=== PATIENT | female | born 1955 | race Caucasian/White ===

== ENCOUNTER 2016-06-02 13:34 | Day surgery (SDC) | payer OTHER ==
--- NOTE | 2016-05-30 12:44 | HP ---
ADMITTING HISTORY AND PHYSICAL: DATE OF ADMISSION: 06/02/16 - [facility] AGE: 61 years, female. ADMITTING DIAGNOSES: 1. Right hydronephrosis. 2. Obstructing calculus, right proximal ureter. 3. Urinary tract infection. PLANNED PROCEDURE: Right retrograde and right stent insertion (to be followed in near future by shockwave or laser lithotripsy). SURGEON: Garcia Conklin MD. ADMITTING HISTORY AND PHYSICAL: Marisol Rapp is a 61-year-old lady, who was recently seen after a gap of several years. She has been having recurrent or persistent urinary tract infections for the last 2 to 3 months and also more recently some right flank pain. She has been on 4 or 5 different antibiotics over the course of the last 2 to 3 months and is currently on Augmentin. She had a CT scan done in November 2015, which had revealed a 1 cm nonobstructing calculus at the right ureteropelvic junction. Because of the persistence of infection and right flank pain, my suspicion was that the calculus may have moved and an ultrasound was done, which revealed a 1.2 cm calculus in the proximal right ureter causing moderate to severe right hydronephrosis. She is now being brought in for urgent right stent insertion to be followed in the future by lithotripsy after complete clear-up of infection. PAST MEDICAL HISTORY: Significant for; 1. Recurrent renal calculi. 2. Hypertension. 3. Right breast cancer diagnosed in 2006. PAST SURGICAL HISTORY: Significant for right lumpectomy followed by radiation therapy, total abdominal hysterectomy and bilateral salpingo-oophorectomy, surgery for skin cancers, and ureteroscopy in 2007. MEDICATIONS ON ADMISSION: 1. Atenolol 50 mg b.i.d. 2. Lisinopril 10 mg a day. 3. Effexor 37.5 mg daily. 4. Ambien 12.5 mg daily. 5. Augmentin b.i.d. 6. Colazal p.r.n. ALLERGIES AND INTOLERANCES: DEMEROL, CODEINE, INTRAVENOUSLY ADMINISTERED IODINE , and FLU VACCINE. FAMILY HISTORY: She has a strong family history of kidney stones, both her sisters have had kidney stones. SMOKING HISTORY: She is a nonsmoker. PHYSICAL EXAMINATION Reveals a pleasant, mildly uncomfortable-appearing middle aged lady. Blood pressure is 130/80, pulse 75 per minute, oxygen saturation 98% on room air, temperature 96.7. Cardiovascular Exam: Regular rate and rhythm. S1, S2. Lungs are clear bilaterally. Abdomen is soft with mild right flank tenderness. IMPRESSION: A 61-year-old lady with recurrent or persistent urinary tract infections for the last 6 to 8 weeks and a large obstructing calculus in the right proximal ureter. Plan is for right stent insertion to be followed in the future by lithotripsy. CC: Dr. Dong; Dr. Amada Kauffman * [id number]/[facility] #: [id number] MTDD
[~2016-06-02 13:34] MED LIST: Buffered Lidocaine 1% SYR 3ML* 3 ML/SYR SYRINGE INTRADERM ONE; Famotidine IV* 10 MG/ML 2 ML (20 mg) IV ONE
[2016-06-02] MEDS ORDERED: Famotidine IV* 10 MG/ML 2 ML (20 mg) ONE (14:12)
[2016-06-02] MEDS ORDERED: cefTRIAXone(*) 2 GM ADDV.VIAL IVPB ONE (14:12)
[2016-06-02 15:26] LABS: Hematocrit 42 % (35-47); Hemoglobin 13.9 g/dl (12.0-16.0); Mean Corpuscular HGB Conc 33 g/dl (31-36); Mean Corpuscular Hemoglobin 31 pg (27-31); Mean Corpuscular Volume 91 fL (80-97); Mean Platelet Volume 7 um3 (7.4-10.4); Red Blood Count 4.54 10^6/ul (4.0-5.4); Red Cell Distribution Width 15 % (10.5-15); White Blood Count 7.7 10^3/ul (3.5-10.8)
[2016-06-02 15:41] LABS: BUN/Creatinine Ratio 14.5 (8-20); EGFR African American 99.8 (>60); EGFR Non-African American 77.6 (>60); Potassium 3.8 mmol/L (3.5-5.0)
[2016-06-02] MEDS ORDERED: Gentamicin ADULT (*) 160 MG in NS 0.9% 100 ML* 100 ML IVPB ONE (16:00)
[2016-06-02] MEDS ORDERED: Dexamethasone IV* 4 MG/ML 1 ML (4 MG) ONE (16:35)
[2016-06-02] MEDS ORDERED: Lidocaine 2% PF * 5 ML VIAL ONE (16:35)
[2016-06-02] MEDS ORDERED: fentaNYL* 50 MCG/ML 2 ML VIAL (100 MCG VIAL) ONE (16:35)
[2016-06-02] MEDS ORDERED: Ondansetron INJ* 2 MG/ML VIAL ONE (16:35)
[2016-06-02] MEDS ORDERED: Propofol* 10 MG/ML 20 ML BTL IV PUSH ONE (16:35)
[2016-06-02] MEDS ORDERED: Ketorolac INJ* 30 MG/ML 1 ML VIAL ONE (16:35)
[2016-06-02] MEDS ORDERED: Midazolam* 1 MG/ML 5 ML VIAL (5 MG) ONE (16:36)
[2016-06-02] MEDS ORDERED: Iohexol 180 (CONTRAST) 10 ML SDV IV ONE (16:50)
[2016-06-02] MEDS ORDERED: fentaNYL* 50 MCG/ML 2 ML VIAL (100 MCG VIAL) IV PRN (17:19)
[2016-06-02] MEDS ORDERED: HYDROmorphone INJ* 1 MG/ML CARPUJECT SYRINGE IV PRN (17:19)
[2016-06-02] MEDS ORDERED: Ondansetron INJ* 2 MG/ML VIAL IV PRN (17:19)
--- NOTE | 2016-06-02 17:57 | RAD ---
INDICATION: Right ureteral stent placement. COMPARISON: Comparison is made with a prior CT of the abdomen and pelvis from December 14, 2015 and correlation is made with a prior KUB series from May 30, 2016. TECHNIQUE: 9 seconds of intermittent fluoroscopic guidance were provided and 5 spot films of the abdomen were centered on the right side. FINDINGS: There is partial opacification of the right renal collecting system. There is dilatation of the renal pelvis and calyces consistent with hydronephrosis. Subsequently there is placement of a double-J stent catheter on the right side which demonstrates normal course. IMPRESSION: INTRAOPERATIVE CONTROL FILMS. CPT II Codes: 6045F
[2016-06-02 18:39] VITALS: BP 178/93
--- NOTE | 2016-06-03 09:46 | OP ---
DATE OF OPERATION: 06/02/16 - [facility] DATE OF : 57 - AGE/SEX: 61 years, female. SURGEON: Garcia Conklin MD ANESTHESIOLOGIST: Dr. Francois. ANESTHESIA: Intravenous sedation. PRE-OP DIAGNOSES: 1. Right hydronephrosis. 2. Obstructing calculus, right proximal ureter. 3. Recurrent or persistent urinary tract infections. POST-OP DIAGNOSES: 1. Right hydronephrosis. 2. Obstructing calculus, right proximal ureter. 3. Recurrent or persistent urinary tract infections. OPERATIVE PROCEDURES: Cystoscopy, right retrograde pyelogram, right ureteral calculus manipulation and right stent insertion. COMPLICATIONS: None. STENT USED: 8-British stent, right ureter. POSTOPERATIVE CONDITION: Stable. INDICATIONS: Marisol Rapp is a 61-year-old lady with a history of recurrent or persistent urinary tract infection. She was evaluated and noted to have significant right hydronephrosis secondary to a large obstructing calculus in the right proximal ureter. She is now being brought in for urgent right stent insertion to be followed at some point in the future by lithotripsy. DESCRIPTION OF PROCEDURE: After induction of intravenous sedation, the patient was placed in dorsal lithotomy position. Sequential compression devices were in place and functioning. Initial cystoscopy revealed a normal-appearing bladder. Right retrograde pyelogram showed the calculus in the right proximal ureter on fluoroscopy and severe right hydronephrosis was noted. The calculus was carefully manipulated proximally, and once this was done, an 8-British stent was introduced and positioned under fluoroscopy with good proximal and distal positioning obtained. The patient tolerated the procedure satisfactorily and was transferred back to the recovery area in stable condition. CC: Dr. Amada Kauffman; Garcia Conklin MD* [id number]/[facility] #: [id number] [facility]
== END 2016-06-02 18:45 | disposition home or self-care (01) ==
LOC: OR 13:34
PROVIDERS: ATTEND Urology
DX: N13.6 Pyonephrosis (principal); Z85.3 Personal history of malignant neoplasm of breast; I10 Essential (primary) hypertension
CPT/HCPCS: 36415; 74420; 80048; 85025; 86703; 86803; C1876; J0696; J1100; J1580; J1885; J2250; J2405; J2704; J3010

== ENCOUNTER → 2016-06-16 08:31 | Day surgery (SDC) | payer OTHER ==
[~2016-06-16 08:31] MED LIST changes: -Buffered Lidocaine 1% SYR 3ML* 3 ML/SYR SYRINGE INTRADERM ONE; +Buffered Lidocaine 1% SYRIN* 3 ML/SYR SYRINGE INTRADERM ONE; -Famotidine IV* 10 MG/ML 2 ML (20 mg) IV ONE; +Furosemide IV* 10 MG/ML 2 ML VIAL (20 MG) ONE; +Labetalol IV* 5 MG/ML 20 ML VIAL ONE; +Midazolam* 1 MG/ML 2 ML VIAL (2 MG) ONE; +cefTRIAXone(*) 2 GM ADDV.VIAL IVPB ONE; +fentaNYL* 50 MCG/ML 2 ML VIAL (100 MCG VIAL) ONE
--- NOTE | 2016-06-16 09:04 | RAD ---
INDICATION: Planned lithotripsy COMPARISON: May 30, 2016 TECHNIQUE: A single view of the abdomen is submitted. FINDINGS: Bones: There are no acute bony findings. Soft tissues: The soft tissues appear normal. The psoas margins are sharp. Bowel gas pattern: Normal Calcifications: No definitive radiopaque calculi are seen.. Other: Right ureteral stent in expected position IMPRESSION: RIGHT URETERAL STENT.
[2016-06-16 11:51] VITALS: BP 149/92
--- NOTE | 2016-06-17 04:16 | OP ---
DATE OF OPERATION: 06/16/16 - [facility] DATE OF : 57 SURGEON: Garcia Conklin MD ANESTHESIOLOGIST: Dr. Hall. ANESTHESIA: Intravenous sedation. PRE-OP DIAGNOSIS: Right renal calculus. POST-OP DIAGNOSIS: Right renal calculus. OPERATIVE PROCEDURE: Shock wave lithotripsy of right renal calculus. INDICATIONS: Marisol Rapp is a 61-year-old lady who had been evaluated for recurrent urinary tract infections. She was noted to have an approximately 1- cm calculus at the right ureteropelvic junction causing right hydronephrosis. She had undergone urgent stent insertion and is now been brought in for lithotripsy. COMPLICATIONS: None. POSTOPERATIVE CONDITION: Stable. DESCRIPTION OF PROCEDURE: After administration of intravenous sedation, the patient was placed on the lithotripsy table in supine position. The calculus which was partly obscured by the proximal coil of the stent in the right kidney was visualized on fluoroscopy, shock wave lithotripsy was commenced at a rate of 60 shocks per minute. After the initial 300 shocks, there was a pause in lithotripsy for several minutes in an effort to minimize any potential trauma to the kidney. Lithotripsy was then resumed and a total of 2000 shocks were administered. Because of the location of the stone partially obscured by the coil of the stent, I was not able to assess accurately the degree of fragmentation of the calculus. The plan is to obtain an ultrasound in the postoperative course to assess the degree of fragmentation prior to deciding regarding stent removal. The patient tolerated the procedure satisfactorily and was transferred back to recovery area in stable condition. CC: Dr. Cameron Dong; Dr. Amada Kauffman; Dr. Garcia Conklin* [id number]/[facility] [place] #: [id number] [facility]
== END | disposition home or self-care (01) ==
LOC: OR 08:31
PROVIDERS: ATTEND Urology
DX: N13.2 Hydronephrosis with renal and ureteral calculous obstruction (principal); I10 Essential (primary) hypertension; Z85.3 Personal history of malignant neoplasm of breast; Z88.5 Allergy status to narcotic agent; Z88.7 Allergy status to serum and vaccine
CPT/HCPCS: 74000; J0696; J1940; J2250; J3010

== ENCOUNTER 2017-04-22 05:55 | Day surgery (SDC) | payer OTHER ==
--- NOTE | 2017-04-14 10:16 | HP ---
CC: Dr. Amada Kauffman * ADMITTING HISTORY AND PHYSICAL: DATE OF ADMISSION: 04/22/17 ADMITTING DIAGNOSIS: Right renal calculus. PLANNED PROCEDURE: Shockwave lithotripsy of right renal calculus, possible right stent insertion. SURGEON: Garcia Conklin MD ADMITTING HISTORY AND PHYSICAL: Marisol Rapp is a 62-year-old lady with a history of right renal calculus and recurrent urinary tract infections. She had undergone shockwave lithotripsy in May 2016, but recent ultrasound had revealed a persistent 1.2 cm calculus in the mid pole of the right kidney. She is now being brought in for another attempt at lithotripsy in an effort to try to render her stone free. PAST MEDICAL HISTORY: Significant for: 1. Renal calculi. 2. History of right breast cancer diagnosed in 2006. 3. Hypertension. MEDICATIONS ON ADMISSION: 1. Potassium citrate 20 mEq twice a day. 2. Atenolol 50 mg a day. 3. Lexapro 5 mg a day. 4. Ambien p.r.n. ALLERGIES AND INTOLERANCES: DEMEROL, CODEINE, INTRAVENOUS IODINE, and FLU VACCINE. PHYSICAL EXAMINATION GENERAL: Reveals a pleasant, healthy-appearing, middle-aged lady. VITAL SIGNS: Blood pressure is 110/70, pulse 68 per minute and regular, oxygen saturation 98% on room air. LUNGS: Clear bilaterally. CARDIOVASCULAR: Regular rate and rhythm. S1, S2. ABDOMEN: Soft with mild right flank tenderness. IMPRESSION: A 62-year-old lady with a persistent right renal calculus and recurrent urinary tract infections. PLANNED PROCEDURE: Shockwave lithotripsy, possible right stent insertion ( decision to be made based on preoperative x-ray findings). [id number]/[facility] #: [id number] [facility]
[~2017-04-22 05:55] MED LIST changes: +Buffered Lidocaine 0.9% SYRIN* 5 ML/SYR SYRINGE INTRADERM ONE; -Buffered Lidocaine 1% SYRIN* 3 ML/SYR SYRINGE INTRADERM ONE; -Furosemide IV* 10 MG/ML 2 ML VIAL (20 MG) ONE; -Labetalol IV* 5 MG/ML 20 ML VIAL ONE; -Midazolam* 1 MG/ML 2 ML VIAL (2 MG) ONE; -cefTRIAXone(*) 2 GM ADDV.VIAL IVPB ONE; -fentaNYL* 50 MCG/ML 2 ML VIAL (100 MCG VIAL) ONE
[2017-04-22] MEDS ORDERED: Famotidine IV* 10 MG/ML 2 ML (20 mg) IV ONE (06:00)
[2017-04-22] MEDS ORDERED: Dexamethasone IV* 4 MG/ML 1 ML (4 MG) IV SLOW PU ONE (06:00)
[2017-04-22] MEDS ORDERED: Famotidine IV* 10 MG/ML 2 ML (20 mg) ONE (06:23)
[2017-04-22] MEDS ORDERED: Dexamethasone IV* 4 MG/ML 1 ML (4 MG) ONE (06:23)
[2017-04-22] MEDS ORDERED: cefTRIAXone(*) 2 GM ADDV.VIAL IVPB ONE (06:24)
[2017-04-22] MEDS ORDERED: Midazolam* 1 MG/ML 10 ML VIAL (10 MG) ONE (07:26)
[2017-04-22] MEDS ORDERED: fentaNYL* 50 MCG/ML 2 ML VIAL (100 MCG VIAL) ONE ×2 (07:26→07:55)
[2017-04-22] MEDS ORDERED: oxyCODONE/Acetamin 5/325 MG* TAB PO PRN (07:38)
[2017-04-22] MEDS ORDERED: fentaNYL* 50 MCG/ML 2 ML VIAL (100 MCG VIAL) IV PRN (07:38)
[2017-04-22] MEDS ORDERED: DiMENhydriNATE IV* 50 MG/ML VIAL IV PUSH PRN (07:38)
[2017-04-22] MEDS ORDERED: Naloxone* 0.4 MG/ML 1 ML VIAL IV PRN (07:38)
[2017-04-22] MEDS ORDERED: Ondansetron INJ* 2 MG/ML VIAL IV PRN (07:38)
[2017-04-22] MEDS ORDERED: Propofol* 10 MG/ML 20 ML BTL IV PUSH ONE (07:42)
[2017-04-22] MEDS ORDERED: Ondansetron INJ* 2 MG/ML VIAL ONE ×2 (07:42→09:18)
[2017-04-22] MEDS ORDERED: Meropenem 1 GM PREMIX(*) 1 GM/50 ML BAG IV ONE (08:00)
[2017-04-22] MEDS ORDERED: Furosemide IV* 10 MG/ML 2 ML VIAL (20 MG) ONE (08:01)
[2017-04-22] MEDS ORDERED: KETAMINE HCL* 50 MG/ML 10 ML VIAL ONE (08:09)
--- NOTE | 2017-04-22 08:19 | RAD ---
HISTORY: Shock wave lithotripsy COMPARISONS: April 02, 2017 VIEWS: Frontal views of the abdomen. FINDINGS: BOWEL: There is a nonobstructive bowel gas pattern. CALCULI: Again noted is a calculus overlying the right renal parenchymal shadow measuring up to 0.7 cm in size. BONES AND SOFT TISSUES: There are no osseous abnormalities. OTHER FINDINGS: The lung bases are clear. There is no subphrenic gas. IMPRESSION: STABLE RIGHT NEPHROLITHIASIS
[2017-04-22] MEDS ORDERED: Scopolamine 1.5 mg* PATCH ONE (10:29)
[2017-04-22 11:21] VITALS: BP 145/83
[2017-04-22] MEDS ORDERED: Scopolamine 1.5 mg* PATCH TRANSDERM SCH (12:00)
--- NOTE | 2017-04-22 12:09 | RAD ---
INDICATION: Postoperative COMPARISON: KUB April 22, 2017 TECHNIQUE: A single view of the abdomen is submitted. This examination is obtained at 1156 hours FINDINGS: Bones: There are no acute bony findings. Soft tissues: The soft tissues appear normal. The psoas margins are sharp. Bowel gas pattern: Normal Calcifications: There is interval fragmentation of the right renal calculus. Other: None IMPRESSION: INTERVAL FRAGMENTATION RIGHT RENAL CALCULUS
--- NOTE | 2017-04-23 00:28 | OP ---
CC: Dr. Amada Kauffman * DATE OF OPERATION: 04/22/17 - [facility] DATE OF : 57 SURGEON: Garcia Conklin MD ANESTHESIOLOGIST: Dr. Payne. ANESTHESIA: Intravenous sedation. PRE-OP DIAGNOSIS: Right renal calculus. POST-OP DIAGNOSIS: Right renal calculus. OPERATIVE PROCEDURE: Shockwave lithotripsy of right renal calculus. COMPLICATIONS: None. PREOPERATIVE CONDITION: Stable. INDICATIONS: Marisol Rapp is a 62-year-old lady who has had a history of right renal calculus and recurrent urinary tract infections. She is now being brought in for shockwave lithotripsy of the renal calculus. DESCRIPTION OF PROCEDURE: After induction of intravenous sedation, the patient was placed on the lithotripsy table in supine position. The calculus in the upper to mid pole area of the right kidney was localized using fluoroscopy. Shock-wave lithotripsy was commenced at a rate of 60 shocks per minute. After the initial 300 shocks, there was a brief pause in lithotripsy to minimize any potential trauma to the kidney. Lithotripsy was then resumed and a total of 2400 shocks were administered. Good fragmentation was observed. The patient tolerated the procedure satisfactorily and was transferred back to the recovery area in stable condition. [id number]/[facility] #: [id number] MTDD
== END 2017-04-22 11:45 | disposition home or self-care (01) ==
LOC: OR 05:55
PROVIDERS: ATTEND Urology
DX: N20.0 Calculus of kidney (principal); Z87.440 Personal history of urinary (tract) infections; I10 Essential (primary) hypertension; Z85.3 Personal history of malignant neoplasm of breast
CPT/HCPCS: 74018; A9270-GY; J0696; J1100; J1940; J2185; J2250; J2405; J2704; J3010